=== PATIENT | female | born 1935 | race Caucasian/White ===

== ENCOUNTER 2018-05-20 06:41 | Inpatient (IN) | payer MEDICARE, BC ==
[~2018-05-20] VITALS: Ht 147.3 cm; Wt 80.7 kg
[2018-05-20] VITALS (34 sets, daily range): BP systolic 77–149; BP diastolic 16–83
--- NOTE | ~2018-05-20 | PROC ---
[facility] [address] [place] [address] PROCEDURE REPORT Name: ITZ TINAJERO Room: [address] IN M.R.#: [id number] Admission: 05/20/18 Attend Phys: Donato Smith, Discharge: 05/30/18 Date of : 33 Report #: [id number] THIS REPORT FOR: //name// For GI report, please see the Provation report in Perceptive 7 content. By: 0656Medical Records Staff ARIELLE /KATLYN
[2018-05-20 07:30] LABS: MCH 29.7 pg (26.0-34.0); MCHC 29.8 g/dL (28.0-37.0); MCV 99.4 fL (80.0-100.0); MPV 10.8 fl. (7.2-11.1); NUCLEATED RBCS 1 /100WBC; PLATELET COUNT* 126 thou/uL (150-400); RDW-CV 18.9 % (10.5-14.5); WBC 5.6 thou/uL (4.0-11.0)
[2018-05-20 07:48] LABS: HEMATOCRIT 13.9 % (37.0-47.0); HEMOGLOBIN 4.2 gm/dL (12.0-15.0)
[2018-05-20 07:54] LABS: INR 1.6; PROTIME 16.2 Seconds (9.20-11.50)
[2018-05-20 07:58] LABS: BE -19.1 mmol/L (-2 to +3); PCO2 23.3 mmHg (35.0-45.0); PO2 97.5 mmHg (75.0-100.0)
[2018-05-20 08:00] LABS: CALCIUM 7.8 mg/dL (8.5-10.1); CREATININE 2.6 mg/dL (0.6-1.3); TROPONIN-I LEVEL 0.06 ng/mL (<0.06)
[2018-05-20 08:02] LABS: pH 7.152 (7.340-7.450)
[2018-05-20 08:02] LABS: ALBUMIN 2.5 g/dL (3.4-5.0); TOTAL BILIRUBIN 0.3 mg/dL (<0.1-1.0); TOTAL PROTEIN 5.7 g/dL (6.4-8.2)
[2018-05-20 08:06] LABS: POTASSIUM 6.2 mmol/L (3.5-5.1)
[2018-05-20 09:17] LABS: ABSOLUTE LYMPHOCYTES 0.3 thou/uL (0.8-5.3); ABSOLUTE MONOCYTES 0.3 thou/uL (0.0-1.2); MYELOCYTES 3 %
[2018-05-20 09:19] LABS: TOXIC GRANULATION 3+
[2018-05-20 09:20] LABS: POLYCHROMASIA 2+
[2018-05-20 09:21] LABS: HYPOCHROMASIA 4+
[2018-05-20 09:22] LABS: BURR CELLS 1+; MACROCYTES 1+
[2018-05-20 09:24] LABS: PLATELET ESTIMATE DECREASED
[2018-05-20 09:37] LABS: URINE BILIRUBIN NEGATIVE (Negative); URINE BLOOD NEGATIVE (Negative); URINE CLARITY CLEAR; URINE COLOR YELLOW; URINE GLUCOSE-RANDOM NEGATIVE (Negative); URINE KETONES NEGATIVE (Negative); URINE LEUKOCYTES-REFLEX NEGATIVE (Negative); URINE NITRITE-REFLEX NEGATIVE (Negative); URINE PROTEIN NEGATIVE (Negative); URINE UROBILINOGEN 0.2 E.U./dl (0.2-1.0)
[2018-05-20 10:23] LABS: HEMATOCRIT 15.1 % (37.0-47.0); HEMOGLOBIN 4.5 gm/dL (12.0-15.0)
[2018-05-20] MEDS ORDERED: LASIX 40 MG TAB40 M2 PO (10:36)
[2018-05-20] MEDS ORDERED: LISINOPRIL10 MG PO (10:36)
[2018-05-20] MEDS ORDERED: GLUCOTROL5 MG PO (10:36)
[2018-05-20] MEDS ORDERED: IRON325 PO (10:36)
[2018-05-20] MEDS ORDERED: METFORMIN HCL500 MG PO (10:37)
[2018-05-20] MEDS ORDERED: OMEPRAZOLE40 MG PO (10:38)
[2018-05-20] MEDS ORDERED: LOPRESSOR25 PO (10:38)
[2018-05-20] MEDS ORDERED: DULERA 200 MCG/13 GM INH (10:38)
[2018-05-20] MEDS ORDERED: PIOGLITAZONE15 MG (10:39)
[2018-05-20] MEDS ORDERED: POTASSIUM20 PO (10:39)
[2018-05-20] MEDS ORDERED: XARELTO15 MG PO (10:39)
[2018-05-20] MEDS ORDERED: ULTRAM 50MG TAB50 MG PO (10:40)
[2018-05-20] MEDS ORDERED: HYTRIN 2MG CAPSU2 M1 PO (10:40)
[2018-05-20 10:57] LABS: APTT 36.4 Seconds (25.0-31.3); INR 1.6; PROTIME 15.9 Seconds (9.20-11.50)
[2018-05-20 11:56] LABS: CALCIUM 8.5 mg/dL (8.5-10.1); CREATININE 2.5 mg/dL (0.6-1.3); MAGNESIUM 1.6 mg/dL (1.8-2.4); PHOSPHORUS* 6.4 mg/dL (2.5-4.9)
[2018-05-20 12:00] LABS: POTASSIUM 5.1 mmol/L (3.5-5.1)
--- NOTE | 2018-05-20 12:00 | EKG ---
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 : 1935 Requested By: India Muller Order Number: [id number] MD: Jim Felix Measurements Intervals [place] Rate: 69 P: 62 WA: 119 QRS: -14 QRSD: 108 T: 51 QT: 464 QTc: 497 Interpretive Statements Sinus rhythm Borderline short WA interval nonspecific st changes Borderline prolonged QT interval Electronically Signed On 05-20-2018 12:00:06 CDT by Jim Felix [email or web address] <ELECTRONICALLY SIGNED> By: Jim Felix MD, [facility] 05/20/18 1200 6 6 Jim Felix MD, [facility] /EPI
[2018-05-20 15:02] LABS: ABSOLUTE LYMPHOCYTES 0.6 thou/uL (0.8-5.3); ABSOLUTE MONOCYTES 0.7 thou/uL (0.0-1.2); ABSOLUTE NEUTROPHILS 7.7 thou/uL (1.6-8.1); BASOPHILS 0.4 %; EOSINOPHILS 0.1 %; LYMPHOCYTES 6.8 %; MCH 29.8 pg (26.0-34.0); MCHC 32.3 g/dL (28.0-37.0); MONOCYTES 7.4 %; MPV 10.2 fl. (7.2-11.1); NUCLEATED RBCS 1 /100WBC; PLATELET COUNT* 147 thou/uL (150-400); POLYS 85.3 %; RBC 1.65 mil/uL (4.20-5.00); RDW-CV 16.3 % (10.5-14.5)
[2018-05-20 15:08] LABS: MCV 92.3 fL (80.0-100.0)
[2018-05-20 15:10] LABS: HEMATOCRIT 15.2 % (37.0-47.0); HEMOGLOBIN 4.9 gm/dL (12.0-15.0)
[2018-05-20 15:24] LABS: ALBUMIN 2.3 g/dL (3.4-5.0); CALCIUM 7.4 mg/dL (8.5-10.1); CREATININE 2.2 mg/dL (0.6-1.3); POTASSIUM 4.8 mmol/L (3.5-5.1); TOTAL BILIRUBIN 0.5 mg/dL (<0.1-1.0)
[2018-05-20 20:26] LABS: HEMATOCRIT 21.6 % (37.0-47.0)
[2018-05-20 20:29] LABS: HEMOGLOBIN 6.8 gm/dL (12.0-15.0)
[2018-05-20 22:08] LABS: BE -12.5 mmol/L (-2 to +3); PCO2 34.5 mmHg (35.0-45.0); PO2 98.8 mmHg (75.0-100.0)
[2018-05-20 22:11] LABS: pH 7.226 (7.340-7.450)
[2018-05-21] VITALS (21 sets, daily range): BP systolic 95–130; BP diastolic 29–45
[2018-05-21 04:09] LABS: HEMATOCRIT 20.4 % (37.0-47.0); MCH 29.2 pg (26.0-34.0); MCV 88.6 fL (80.0-100.0); MPV 9.4 fl. (7.2-11.1); RBC 2.31 mil/uL (4.20-5.00); RDW-CV 16.8 % (10.5-14.5); WBC 9.5 thou/uL (4.0-11.0)
[2018-05-21 04:49] LABS: ALBUMIN 2.3 g/dL (3.4-5.0); CALCIUM 7.4 mg/dL (8.5-10.1); CREATININE 2.2 mg/dL (0.6-1.3); MAGNESIUM 1.6 mg/dL (1.8-2.4); PHOSPHORUS* 6.1 mg/dL (2.5-4.9); POTASSIUM 5.1 mmol/L (3.5-5.1); TOTAL BILIRUBIN 0.4 mg/dL (<0.1-1.0); TOTAL PROTEIN 5.1 g/dL (6.4-8.2)
[2018-05-21 04:51] LABS: HEMOGLOBIN 6.7 gm/dL (12.0-15.0)
[2018-05-21 09:10] LABS: HEMOGLOBIN 4.1 g/dL (11.1-15.9)
[2018-05-21 13:11] LABS: HEMOGLOBIN 7.5 gm/dL (12.0-15.0)
[2018-05-21 13:13] LABS: HEMATOCRIT 22.5 % (37.0-47.0)
--- NOTE | 2018-05-21 13:46 | EKG ---
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 : 1935 Requested By: Francie Dukes Order Number: [id number] MD: Jim Felix Measurements Intervals [place] Rate: 70 P: 73 ND: 125 QRS: -15 QRSD: 150 T: 26 QT: 466 QTc: 503 Interpretive Statements Sinus rhythm Probable left ventricular hypertrophy ST depression, consider ischemia, lateral lds Prolonged QT interval No previous ECG available for comparison Electronically Signed On 05-21-2018 13:46:25 CDT by Jim Felix [email or web address] <ELECTRONICALLY SIGNED> By: Jim Felix MD, [facility] 05/21/18 1346 0653 0653 Jim Felix MD, [facility] /EPI
--- NOTE | 2018-05-21 15:53 | CON ---
[address] [address] CONSULTATION Name: ITZ TINAJERO Room: [address] IN M.R.#: [id number] Admission: 05/20/18 Attend Phys: Donato Smith, Discharge: Date of : 33 Report #: [id number] THIS REPORT FOR: //name// CC: Gato Smith DATE OF SERVICE: 05/20/2018 REASON FOR CONSULTATION: I was asked to evaluate concerning possible septic shock. HISTORY OF PRESENT ILLNESS: The patient is an 83-year-old who presented to the Emergency Room by EMS when she was found by her grandson lethargic and very weak. He called EMS who noted profound bradycardia with heart rate in the 20s. She was given atropine. She was transported to the Emergency Room. Again, she dropped her heart rate and was given another atropine. Hemodynamically, she has been hypotensive and hypothermic. She denies any fever, chills or sweats. She has been complaining of tachycardia with known atrial fibrillation. Her metoprolol was doubled this past week. She has had no fever, chills or sweats. Denies any cough or sputum production. No chest pain. No aspiration episodes. She has had an aortic valve replacement. She remains on Xarelto. She has hemorrhoid issues. She takes iron for chronic anemia. When she presented to the Emergency Room, it was noted her hemoglobin was 4. She is now receiving blood transfusion. She received IV fluids and vasopressors. Creatinine was over 2 with decreased urine output, which is now improving. Overall, she is hungry now alert and without specific complaint. REVIEW OF SYSTEMS: She denies any abdominal pain, nausea or vomiting. She has loose stools on a regular basis. No dysuria, frequency or back pain. Ten-point review was negative other than what is described above. ALLERGIES: GABAPENTIN, ASPIRIN, HEPARIN, PENICILLIN, SULFA, TETRACYCLINE, ZINC. MEDICATIONS: As noted on her MAR, which were reviewed. She was given vancomycin and ceftriaxone in the Emergency Room. PAST MEDICAL HISTORY: Diabetes, atrial fibrillation, aortic valve replacement in 2011, anemia, hypertension. FAMILY HISTORY: Noncontributory. SOCIAL HISTORY: Nonsmoker. No significant alcohol intake. PHYSICAL EXAMINATION: VITAL SIGNS: Temperature 97.5, pulse 87, respiratory rate 16, blood pressure 119/33[place] [address] CONSULTATION Name: ITZ TINAJERO Virgie Room: [address]#: [id number] Admission: 05/20/18 Attend Phys: Donato Smith, Discharge: Date of : 33 Report #: [id number] GENERAL: She was alert, cooperative, pleasant, in no acute distress. She was pale, obese, on 2 liters of oxygen per nasal cannula. She was alert, oriented and conversant. HEENT: She had a right IJ catheter in place. There was some ecchymosis across her lower anterior neck. Eyes were without scleral icterus. Mouth without mucositis. NECK: Supple. LUNGS: Few crackles in the left base posteriorly. HEART: Regular without appreciable murmur, gallop or rub. ABDOMEN: Soft. Liver was palpable in the right upper quadrant. No other masses palpable. Nontender. Positive bowel sounds. GENITOURINARY: Perianal examination with hemorrhoids visible. External genitalia without lesion or rash with indwelling Page catheter. EXTREMITIES: Without cyanosis, clubbing or edema. Cranial nerves intact. Strength in upper and lower extremities was normal. Sensation in upper and lower extremities normal. NEUROLOGIC: Mood, normal. LABORATORY STUDIES: Sodium 141, potassium 4.8, bicarbonate of 18, creatinine 2.2. Blood glucose 252, AST 275, bilirubin 0.5, alkaline phosphatase 60, ALT 143. Troponin 0.06. Lactate initially 11.7, now 2.7. INR 1.6. Hemoglobin 4.9, WBC 9, platelet count 147,000. Differential unremarkable. Urinalysis unremarkable. ABG on 2 liters showed a pO2 97, pCO2 of 23, pH 7.15, bicarbonate of 8 that was early this morning. Blood cultures are pending. Chest x-ray, left mid and lower lung infiltrate, cardiomegaly. IMPRESSION: An 83-year-old presents with bradycardia and hypotension, most consistent with anemia with her hemoglobin down to 4 along with increased dose of metoprolol. So far I not finding any evidence of end organ infection other than basilar infiltrate on the right and will be treated for community-acquired pneumonia. Despite this, she has had no fevers, any cough or sputum production. Denies any pleuritic chest pain. She is anticoagulated for her prosthetic aortic valve. She has underlying diabetes. She has acute renal failure that will be followed. RECOMMENDATIONS: Continue antibiotic coverage for community-acquired pneumonia. Replace blood products due to her profound anemia. I am suspecting this is driving most of this presentation. The patient will likely need General Surgery evaluation regarding her hemorrhoids. The patient will require continued anticoagulation for aortic valve replacement. The patient will require close monitoring of her blood glucose levels. We will [place] [address] CONSULTATION Name: ITZ TINAJERO Room: [address] IN [facility]#: [id number] Admission: 05/20/18 Attend Phys: Donato Smith, Discharge: Date of : 33 Report #: [id number] other positive cultures. Obtain serial chest x-rays and hemoglobins and creatinine. <ELECTRONICALLY SIGNED> By: Andrade Cook MD 05/21/18 1553 1708 [id number] Cook MD /nt
[2018-05-21 19:10] LABS: HEMOGLOBIN 7.1 gm/dL (12.0-15.0); MCH 29.3 pg (26.0-34.0); MCHC 33.8 g/dL (28.0-37.0); MCV 86.7 fL (80.0-100.0); MPV 8.8 fl. (7.2-11.1); RBC 2.43 mil/uL (4.20-5.00); RDW-CV 18.1 % (10.5-14.5); WBC 8.6 thou/uL (4.0-11.0)
[2018-05-22] VITALS (21 sets, daily range): BP systolic 99–145; BP diastolic 35–55
[2018-05-22 07:15] LABS: ALBUMIN 2.1 g/dL (3.4-5.0); CALCIUM 7.1 mg/dL (8.5-10.1); CREATININE 2.1 mg/dL (0.6-1.3); MAGNESIUM 1.9 mg/dL (1.8-2.4); PHOSPHORUS* 4.7 mg/dL (2.5-4.9); POTASSIUM 4.8 mmol/L (3.5-5.1); TOTAL BILIRUBIN 0.2 mg/dL (<0.1-1.0); TOTAL PROTEIN 4.7 g/dL (6.4-8.2)
[2018-05-22 08:18] LABS: BE -5.7 mmol/L (-2 to +3); PCO2 41.7 mmHg (35.0-45.0); PO2 122.1 mmHg (75.0-100.0); pH 7.303 (7.340-7.450)
[2018-05-22 08:23] LABS: HEMATOCRIT 20.5 % (37.0-47.0); MCH 28.7 pg (26.0-34.0); MCHC 32.6 g/dL (28.0-37.0); RBC 2.33 mil/uL (4.20-5.00); RDW-CV 18.7 % (10.5-14.5); WBC 7.9 thou/uL (4.0-11.0)
[2018-05-22 08:27] LABS: HEMOGLOBIN 6.7 gm/dL (12.0-15.0)
[2018-05-22 10:06] LABS: CA 125 18.2 U/mL (0.0-38.1)
--- NOTE | 2018-05-22 13:42 | 2DMMODE ---
[place] [address] 2 D/M-MODE ECHOCARDIOGRAM Name: ITZ TINAJERO Room: [address] IN .R.#: [id number] Admission: 05/20/18 Attend Phys: Donato Owen Discharge: Date of : 31 Date of Service: 05/22/18 1342 Report #: [id number] THIS REPORT FOR: //name// APPROVED REPORT Study performed: 05/22/2018 09:41:28 EXAM: Comprehensive 2D, Doppler, and color-flow Echocardiogram Patient Location: Bedside BSA: 1.72 HR: 80 bpm BP: 115/46 mmHg Other Information Study Quality: Fair Indications Sepsis 2D Dimensions IVSd: 13.60 (7-11mm) LVOT Diam: 20.72 (18-24mm) LVDd: 45.38 mm PWd: 10.44 (7-11mm) Ascending Ao: 31.08 (22-36mm) LVDs: 33.90 (25-40mm) Aortic Root: 27.02 mm Volumes Left Atrial Volume (Systole) LA ESV Index: 34.10 mL/m2 Aortic Valve AoV Peak Fermin.: 2.07 m/s AO Peak Gr.: 17.07 mmHg LVOT Max P.47 mmHg AO Mean Gr.: 10.25 mmHg LVOT Mean P.86 mmHg LVOT Max V: 0.93 m/s AO V2 VTI: 46.35 cm LVOT Mean V: 0.63 m/s ZEINAB (VTI): 1.45 cm2 LVOT V1 VTI: 19.99 cm AI [place]: 2.56 m/s2 AI PHT: 476.55 ms Mitral Valve E/A Ratio: 1.23 MV Decel. Time: 190.62 ms MV E Max Fermin.: 1.25 m/[place] [address] 2 D/M-MODE ECHOCARDIOGRAM Name: ITZ TINAJERO Room: [address] IN .R.#: [id number] Admission: 05/20/18 Attend Phys: Donato Owen Discharge: Date of : 31 Date of Service: 05/22/18 1342 Report #: [id number] MV PHT: 55.28 ms MVA (PHT): 3.98 cm2 TDI E/Lateral E': 11.36 E/Medial E': 12.50 Medial E' Fermin.: 0.10 m/s Lateral E' Fermni.: 0.11 m/s Pulmonary Valve PV Peak Fermin.: 1.36 m/s PV Peak Gr.: 7.39 mmHg Tricuspid Valve RAP Estimate: 20.00 mmHg TR Peak Gr.: 37.95 mmHg RVSP: 47.95 mmHg PA Pressure: 47.95 mmHg Left Ventricle The left ventricle is normal size. There is normal LV segmental wall motion. There is normal left ventricular wall thickness. Left ventricular systolic function is normal. The left ventricular ejection fraction is within the normal range. LVEF is 55-60%. The left ventricular diastolic function is normal. Right Ventricle The right ventricle is normal size. The right ventricular systolic function is normal. Atria Left atrium is mildly dilated. Right atrium is mildly dilated. Aortic Valve Bioprosthetic aortic valve is present. Mild aortic regurgitation. There is no aortic valvular stenosis. Mitral Valve There is mitral annular calcification. Trace mitral regurgitation. No evidence of mitral valve stenosis. Tricuspid Valve The tricuspid valve is normal in structure. Mild to moderate tricuspid regurgitation. estimated pa pressure 30 mm Hg Pulmonic Valve The pulmonary valve is normal in structure. Mild [place] [address] 2 D/M-MODE ECHOCARDIOGRAM Name: ITZ TINAJERO Room: [address]#: [id number] Admission: 05/20/18 Attend Phys: Donato Owen Discharge: Date of : 33 Date of Service: 05/22/18 1342 Report #: [id number] Great Vessels The aortic root is normal in size. IVC is dilated. Pericardium There is no pericardial effusion. <Conclusion> LVEF is 55-60%. Left atrium is mildly dilated. Bioprosthetic aortic valve is present. Mild aortic regurgitation. Mild to moderate tricuspid regurgitation. estimated pa pressure 30 mm Hg <ELECTRONICALLY SIGNED> By: Jim Felix MD, [facility] 05/22/18 1342 134 41 Jim Felix MD, FACC /INF
[2018-05-22 20:01] LABS: HEMATOCRIT 23.4 % (37.0-47.0); HEMOGLOBIN 7.8 gm/dL (12.0-15.0)
[2018-05-23] VITALS: BP 117/55
[2018-05-23 04:14] VITALS: BP 139/55
[2018-05-23 05:45] LABS: HEMATOCRIT 22.7 % (37.0-47.0); HEMOGLOBIN 7.6 gm/dL (12.0-15.0); MCH 29.3 pg (26.0-34.0); MCHC 33.6 g/dL (28.0-37.0); MCV 87.2 fL (80.0-100.0); MPV 8.7 fl. (7.2-11.1); RBC 2.6 mil/uL (4.20-5.00); RDW-CV 16.6 % (10.5-14.5); WBC 6.5 thou/uL (4.0-11.0)
[2018-05-23 05:52] LABS: CALCIUM 7.6 mg/dL (8.5-10.1); CREATININE 1.8 mg/dL (0.6-1.3); MAGNESIUM 1.8 mg/dL (1.8-2.4); POTASSIUM 4.6 mmol/L (3.5-5.1)
[2018-05-23 08:00] VITALS: BP 141/75
[2018-05-23 11:55] VITALS: BP 151/64
--- NOTE | 2018-05-23 12:06 | CON ---
[address] [address] CONSULTATION Name: ITZ TINAJERO Room: [address] IN M.R.#: [id number] Admission: 05/20/18 Attend Phys: Donato Smith, Discharge: Date of : 33 Report #: [id number] THIS REPORT FOR: //name// CC: Gato Smith M.D. DATE OF SERVICE: 05/21/2018 ATTENDING PHYSICIAN: Donato Smith MD. PRIMARY CARE PHYSICIAN: Gato Yanez DO. The patient is located in ICU bed 3. INDICATION FOR CONSULTATION: Mild hypoxemia, pulmonary infiltrate, lactic acidosis. HISTORY OF PRESENT ILLNESS: The patient is an 83-year-old female, nonsmoker, who was admitted through the Emergency Room yesterday. The patient had a 3-5 day history of feeling poorly at home. She had lethargy, was weak and was hypotensive. She was bradycardic when she was seen by EMS and her metoprolol been doubled this week, I believe for elevation of her blood pressure. She was hypotensive and hypothermic. When she reached the Emergency Room, she was anemic with hemoglobin of 4 and a lactic acid of 11. She denied any fever, chills or sweats and on talking to her today, she denies any cough, aspiration or chest pain. She has had an aortic valve replacement in the past and remains on Xarelto. She denies any bleeding in her stools. She does have occasional hemorrhoid though. She had oliguric renal failure also and she was placed on Levophed for pressors that seems to be improving at this time. She is more alert and awake today. PAST MEDICAL HISTORY: History of diabetes, atrial fibrillation, aortic valve replacement in 2011 with chronic anticoagulation, anemia and hypertension. She has a history of mild asthma for which she was not oxygen or steroid dependent. She is on Dulera at home for this. OUTPATIENT MEDICATIONS: Included Dulera 200/5 mcg 1 puff b.i.d., Ventolin inhaler 2 puffs p.r.n. Has a nebulizer machine at home. She is currently on IV vancomycin and ceftriaxone, Protonix, IV fluids, sliding scale insulin and alprazolam 0.25 mg q. 6 hours p.r.n. Has had a couple doses of IV bicarbonate, had one dose of Solu-Medrol 125 mg, actually received one dose of Lasix 40 mg [place] [address] CONSULTATION Name: TINAJEROITZ Room: [address] IN [facility].#: [id number] Admission: 05/20/18 Attend Phys: Donato Smith, Discharge: Date of : 33 Report #: [id number] ALLERGIES: SHE HAS MULTIPLE ALLERGIES OR INTOLERANCE INCLUDING PENICILLIN, SULFA, WHICH GIVE HER NAUSEA AND HEADACHE. PENICILLIN GIVES HER NAUSEA, ALSO ZINC AND ASPIRIN. GABAPENTIN, WHICH GIVES HER HALLUCINATIONS AND QUESTIONABLY HEPARIN, NOT CERTAIN WHAT THAT IS ABOUT. TETRACYCLINE WITH NAUSEA. PAST SURGICAL HISTORY: Includes aortic valve replacement with mechanical aortic valve in 2012 and diabetes. FAMILY HISTORY: Noncontributory. SOCIAL HISTORY: She is a nonsmoker. She has a daughter, who lives nearby, who helps with her caregiving needs. The patient resides in [place], [place] and her daughter also is in [place], [place]. She may be actually in the same household. REVIEW OF SYSTEMS: A 14-point review of systems reviewed and negative except for pertinent positives noted in the HPI. PHYSICAL EXAMINATION: GENERAL: This is a weak, frail, 83-year-old female, who appears to be improving a little bit. VITAL SIGNS: Blood pressure is still soft on 16 mcg of Levophed at 110/45 with a heart rate of 72, respirations are 16 on 2 liters, temperature is 36.8, saturation on 2 liters 99%. She is barely 5 feet tall, weight 81 kilograms or 176 pounds, BMI is 37. HEENT: Unremarkable. Mucous membranes are dry. No increase in jugular venous pressure. NECK: Supple, without nodes. No masses or adenopathy. CHEST: Left chest shows a few rhonchi at the left lower lobe at the left base, otherwise clear. CARDIOVASCULAR: Regular rate and rhythm without murmur, gallop or rub. She does have a soft aortic click sound. ABDOMEN: Soft and mildly distended, but without any rebound tenderness. EXTREMITIES: Show trace edema. No cyanosis, clubbing or edema. LABORATORY AND DIAGNOSTIC STUDIES: Chest x-ray shows large hiatal hernia in the left lower lobe and also, on the CT of the abdomen, very small bilateral pleural effusions. No significant overwhelming bronchopneumonia or infiltrates are noted. Minimal atelectatic changes noted. She also has scoliosis. No definite COPD at least seen on the CAT scan. Laboratory from today shows initial hemoglobin was 4. After 2 units, she is up to 6.7 with a white count 9500 and platelet count of 131,000. Sodium is 141, potassium is 5.1 this morning. Carbon dioxide is up to 18, it was 12. BUN 71, creatinine is down to 2.2, glucose 273, phosphorus is up 6.1, magnesium is 1.6. AST is elevated at 307, ALT is 171, still slightly elevated. Albumin is low at 2.3. Lactic acid initially was 11. It is back down to 2 at this time. ABGs from yesterday [address] [address] CONSULTATION Name: ITZ TINAJERO Room: [address] IN .R.#: [id number] Admission: 05/20/18 Attend Phys: Donato Smith, Discharge: Date of : 33 Report #: [id number] evening, which were improving on 2 liters showed a pO2 of 98, pH 7.22, pCO2 is 35, bicarbonate was 14. Previous bicarbonate was 8 upon admission and her O2 sat was 95%. Initial ABG, O2 content was 7.1, is now up to 10.3. CT of the abdomen does not show anything surgical, some cholelithiasis is noted, some minimal colitis changes were noted. Blood cultures are pending. IMPRESSION: 1. Sepsis with hypotension, etiology unclear, could be related to the higher dose of metoprolol with bradycardia and hypotension could be related to occult infection or sepsis either from GI tract, urinary tract. Lungs been other possibility. She is not hypoxic and the lower cuts on the CT abdomen is not impressive at all. 2. Anemia, etiology unclear. 3. Bradycardia, could be related to illness or to her sepsis. 4. Aortic valve replacement. It appears it is a bioprosthetic aortic valve. I do not see a metallic valve on a CT abdomen or on chest x-rays. She is on what appears to be chronic anticoagulation for this and Xarelto. PLAN: We will add a burst course of steroids for her sepsis and her hypotension. See if her hypotension does not improve, keep her on antibiotics with vancomycin and Merrem and really the chest x-ray findings are not impressive. I do not think she has an overwhelming bronchopneumonia at this time. We will continue to look for other causes of sepsis including GI tract, urinary tract infections and skin, etc. We will see how she does on the pressors and the steroids. Follow up chest x-ray in a day or two and make sure hiatal hernia and reflux is not causing her intermittent aspiration or intermittent aspiration pneumonia. This has been a 36-minute critical care time in consult. <ELECTRONICALLY SIGNED> By: Ike Tinsley MD 05/23/18 1206 1244 [id number] Velazco MD /nt
[2018-05-23 15:58] VITALS: BP 145/56
--- NOTE | 2018-05-23 17:25 | CON ---
[address] [address] CONSULTATION Name: ITZ TINAJERO Room: [address] IN M.R.#: [id number] Admission: 05/20/18 Attend Phys: Donato Smith, Discharge: Date of : 33 Report #: [id number] THIS REPORT FOR: //name// CC: INDIO Smith DATE OF SERVICE: 05/20/2018 HISTORY OF PRESENT ILLNESS: The patient is an 83-year-old single white female who I was asked to see in the hospital today because of shortness of breath. The history is obtained from the grandson who is present. The patient is currently confused. She has never been here to [place] before. She apparently had aortic valve replacement several years ago at [facility] using a tissue valve. She was actually just admitted to [facility] less than a month ago. She was noted to be anemic, felt to have B12 deficiency. She had a bleeding hemorrhoid. She was noted to have chronic kidney disease. She was actually discharged on Xarelto to custodial. She is not very active and uses a walker. The patient apparently was confused, short of breath and lightheaded. The grandson called an ambulance and she was brought to the Emergency Room today. She is noted to be hypotensive with a slow heart rate. Because of her previous aortic valve replacement, cardiology consultation was requested. Apparently, there has been no significant chest pain, palpitations, syncope. She denied any recent fever. PAST MEDICAL HISTORY: Otherwise, she has had history of hypertension, diabetes. MEDICATIONS: Consists of iron, Lasix, glipizide, lisinopril, metformin, metoprolol, Actos, Xarelto, terazosin. FAMILY HISTORY: Negative for heart disease. SOCIAL HISTORY: She is . No smoking history. REVIEW OF SYSTEMS: She had no history of stroke, asthma, peptic ulcer disease, cancer, psychiatric illness, chronic skin condition. PHYSICAL EXAMINATION: GENERAL: Revealed an elderly, frail-appearing female. VITAL SIGNS: She is only 5 feet 11 inches. She had blood pressure ____, pulse is 70. HEENT: She was anicteric. Conjunctivae pale. Mucous membranes appeared dry. CHEST: Clear to auscultation. CARDIAC: Revealed a regular rhythm, grade 2 systolic ejection murmur. ABDOMEN: Soft. EXTREMITIES: [place] [address] CONSULTATION Name: NICOLETTE TINAJEROLISSETT Garvin Room: [address]#: [id number] Admission: 05/20/18 Attend Phys: Donato Smith, Discharge: Date of : 33 Report #: [id number] SKIN: Cool and dry. LABORATORY DATA: ECG on admission shows what appears to be a sinus rhythm, left ventricular hypertrophy. Her workup in the Emergency Room today, she had a portable chest x-ray that showed cardiomegaly, previous aortic valve replacement, clear lung lala, minimal atelectasis. There appears to be an infiltrate in the left lower lobe. LABORATORY DATA: Sodium 137, potassium 6.2, BUN 78, creatinine 2.6, glucose 242, albumin is 2.5. Lactic acid 8.6. Troponin 0.06. BNP 8454. Her white blood cell count 5.6, hemoglobin 4.5, platelet count 126,000. IMPRESSION AND RECOMMENDATIONS: 1. History of atrial fibrillation. The patient is on Xarelto. She currently is in sinus rhythm. I would discontinue Xarelto. I would hold her beta maury because of bradycardia. 2. Previous aortic valve replacement. Recent echo showed the valve is working normally. 3. Anemia. History of hemorrhoids. The patient received transfusion. 4. Confusion. 5. Chronic kidney disease. 6. Hyperkalemia. The patient has been on potassium supplements. 7. Diabetes. 8. History of hypertension. Currently, blood pressure low. I would hold her beta maury and ELEAZAR inhibitor at this time. <ELECTRONICALLY SIGNED> By: Jim Felix MD, FACC 05/23/18 1725 1121 [id number] Felix MD, FAC /nt
[2018-05-23 21:10] VITALS: BP 119/44
[2018-05-24] VITALS: BP 115/55
[2018-05-24 03:39] VITALS: BP 133/58
[2018-05-24 05:23] LABS: HEMATOCRIT 22.9 % (37.0-47.0); HEMOGLOBIN 7.6 gm/dL (12.0-15.0); MCH 29.1 pg (26.0-34.0); MCHC 32.9 g/dL (28.0-37.0); MCV 88.4 fL (80.0-100.0); MPV 9.1 fl. (7.2-11.1); RBC 2.6 mil/uL (4.20-5.00); RDW-CV 16.7 % (10.5-14.5); WBC 7.7 thou/uL (4.0-11.0)
[2018-05-24 05:41] LABS: CALCIUM 7.9 mg/dL (8.5-10.1); CREATININE 1.6 mg/dL (0.6-1.3); MAGNESIUM 1.8 mg/dL (1.8-2.4)
[2018-05-24 07:40] VITALS: BP 139/59
[2018-05-24 14:09] VITALS: BP 134/53
[2018-05-24 16:03] VITALS: BP 137/58
[2018-05-24 19:10] LABS: IgA 175 mg/dL (64-422); IgG 558 mg/dL (700-1600); IgM 23 mg/dL (26-217)
[2018-05-24 20:00] VITALS: BP 139/53
[2018-05-25 06:46] LABS: HEMATOCRIT 26.8 % (37.0-47.0); HEMOGLOBIN 8.8 gm/dL (12.0-15.0); MCH 29.4 pg (26.0-34.0); MCV 89.1 fL (80.0-100.0); MPV 8.9 fl. (7.2-11.1); RBC 3.01 mil/uL (4.20-5.00); RDW-CV 16.5 % (10.5-14.5); WBC 6.4 thou/uL (4.0-11.0)
[2018-05-25 07:01] LABS: CALCIUM 7.9 mg/dL (8.5-10.1); CREATININE 1.4 mg/dL (0.6-1.3); MAGNESIUM 1.6 mg/dL (1.8-2.4); POTASSIUM 4.1 mmol/L (3.5-5.1)
[2018-05-25 08:30] VITALS: BP 159/54
--- NOTE | 2018-05-25 10:11 | CON ---
[address] [address] CONSULTATION Name: ITZ TINAJERO Room: [address] IN M.R.#: [id number] Admission: 05/20/18 Attend Phys: Donato Smith, Discharge: Date of : 31 Report #: [id number] THIS REPORT FOR: //name// CC: Gato Smith TYPE OF REPORT: Nephrology consultation. CONSULTING PHYSICIAN: Donato Smith M.D. REASON FOR CONSULTATION: Acute kidney injury. HISTORY OF PRESENT ILLNESS: An 83-year-old female who was brought in with hypotension and bradycardia, concern for sepsis and pneumonia. She had heart rates in the 20s. She received atropine. Cardiology has been consulted as well as Infectious Disease to help manage antibiotics. She was given fluid boluses and started on Levophed, transferred to the ICU. She was being markedly acidotic and was given bicarbonate. She does not have an outpatient kidney doctor but tells me that she has been referred to see one as an outpatient. Presently appears to be comfortable. She has family present at the bedside who helped provide some of the history, although the patient is awake and alert, able to provide some meaningful history to me now. She denies any chest pain and denies any vomiting. She was severely anemic with a hemoglobin of 4.5 and is being transfused and the anemia is also being worked up by the Internal Medicine Service. REVIEW OF SYSTEMS: Constitutional, psych, heme, eyes, ENT, respiratory, cardiac, GI, , endocrine, all negative except as documented above. PAST MEDICAL HISTORY: Diabetes and history of aortic valve replacement in 2012. SOCIAL HISTORY: No tobacco. FAMILY HISTORY: Not pertinent in this 83-year-old female. CURRENT MEDICATIONS: Reviewed. PHYSICAL EXAMINATION: VITAL SIGNS: Blood pressure 120/80, pulse 68, respirations 12 and temperature 35.1. GENERAL: No acute distress. EYES: Open. EARS: Externally normal. CARDIOVASCULAR: Regular rate. LUNGS: Diminished breath sounds. ABDOMEN: Soft. MUSCULOSKELETAL: [place] [address] CONSULTATION Name: ITZ TINAJERO Room: [address]#: [id number] Admission: 05/20/18 Attend Phys: Donato Smith, Discharge: Date of : 33 Report #: [id number] PSYCHIATRIC: Awake and alert. LABORATORY DATA: Sodium 139, potassium 5.1, chloride 106, bicarbonate 12, BUN 79, creatinine 2.5, glucose 267, calcium 8.5, phosphorus 6.4 and magnesium 1.6. White cell count 5.6, hemoglobin was 4.2 and platelets were 126. ASSESSMENT: 1. Acute kidney injury with admission creatinine of 2.6 in the setting of septic shock with blood pressures in the 70s and bradycardia down into the 20s, requiring atropine as well as severe anemia with a hemoglobin of 4.5. UA was unrevealing. She was on Lasix and lisinopril. Baseline creatinine is unknown. 2. Hypotension with blood pressure down to the 70s/septic shock. Levophed initiated on admission. 3. Metabolic/lactic acidosis with an admission pH is 7.15, pCO2 of 23 and bicarbonate of 8. 4. Severe anemia with hemoglobin of 4.5. 5. Hypoalbuminemia with an albumin of 2.5. 6. History of aortic valve replacement, porcine in 2011, septic shock/pneumonia. 7. Diabetes. PLAN: 1. She has had hypomagnesemia. Magnesium is being replaced. 2. Discontinue p.r.n. Lasix. 3. Check renal ultrasound. 4. Caution vancomycin in the setting of renal insufficiency. 5. We will adjust IV fluids and increase bicarbonate. 6. We will follow closely. She is critically ill. Transfusion is being managed by Primary Service. CRITICAL CARE TIME: Thirty-five minutes of critical care time was spent. Thank you for requesting my opinion in the care and management of this patient. <ELECTRONICALLY SIGNED> By: Pauline Rush MD 05/25/18 1011 [id number] Rush MD /nt
[2018-05-25 11:11] LABS: HEMOGLOBIN 8.1 g/dL (11.1-15.9)
[2018-05-25 14:10] LABS: KAPPA FREE LIGHT CHAINS 24.2 mg/L (3.3-19.4); LAMBDA FREE LIGHT CHAINS 25.7 mg/L (5.7-26.3)
[2018-05-25 16:00] VITALS: BP 162/67
--- NOTE | 2018-05-25 16:27 | CON ---
[address] [address] CONSULTATION Name: ITZ TINAJERO Room: [address] IN M.R.#: [id number] Admission: 05/20/18 Attend Phys: Donato Smith, Discharge: Date of : 33 Report #: [id number] THIS REPORT FOR: //name// CC: Gato Smith REASON FOR CONSULTATION: Anemia. SUBJECTIVE: An 83-year-old female who is being evaluated for severe anemia. Upon admission, on 05/20/2018, her hemoglobin was 4.2. During her hospital stay, she was transfused 4 units of PRBC. The patient reported that she was in the process to be seen at the clinic as an outpatient; however, she ended up being admitted because of hypotension and septic shock. The patient received broad-spectrum antibiotics and supportive transfusion. The patient reported that she has been on transfusion frequently for many years, she thinks she had hemorrhoids. The patient had an upper and lower scope prior to that. The patient did not have any recent workup for her anemia. She reported that she had a bone marrow biopsy at the age of 10. The patient denies any nausea, vomiting or abdominal pain. She received IV fluids. Also, she had a history of aortic valve replacement and was on Xarelto. REVIEW OF SYSTEMS: All systems were reviewed. It was negative except the above. PAST MEDICAL HISTORY: Diabetes mellitus; AFib; aortic valve replacement, on anticoagulation; chronic anemia, unknown etiology; hypertension; mild asthma; chronic kidney disease. MEDICATIONS: Per admission list. ALLERGIES: PENICILLIN, SULFA, ZINC, ASPIRIN. FAMILY HISTORY: Noncontributory. SOCIAL HISTORY: No smoking, no alcohol abuse, no drug abuse. PHYSICAL EXAMINATION: VITAL SIGNS: Temperature is 36.6, pulse is 82, respirations 17, blood pressure is 133/58, SpO2 was 94% on 2 liters. GENERAL: The patient was sitting in a chair, otherwise, not in acute distress. LUNGS: Clear. Decreased breathing sounds bilaterally. HEART: Regular rate and rhythm. S1, S2 within normal limits. ABDOMEN: Soft, nontender, nondistended, bowel sounds positive. EXTREMITIES: +2 edema bilaterally. LABORATORY DATA: WBC 7.7, hemoglobin is 7.6 today. MCV is 88.9, platelets are 84. PT 15.9, PTT 36.4, fibrinogen 343. Creatinine is 1.6. Upon admission, [place] [address] CONSULTATION Name: ITZ TINAJERO Room: [address]#: [id number] Admission: 05/20/18 Attend Phys: Donato Smith, Discharge: Date of : 33 Report #: [id number] was 2.6. IMAGING: A chest x-ray showed cardiomegaly, mild basilar densities consistent with atelectasis. CT abdomen done without contrast, there is a prominent soft tissue edema with cardiomegaly, no abnormalities in the kidneys, with cholelithiasis. ASSESSMENT AND PLAN: An 83-year-old female who has been dependent on transfusion for unclear etiology. The patient reported that she has been having hemorrhoids and she noticed bright blood per rectum intermittently; however, I would like to review her trend of hemoglobin from [facility] records; however, I believe the patient will need a full workup to investigate her refractory anemia in order to rule out myelodysplastic syndrome. RECOMMENDATIONS: I would like to obtain peripheral blood smear, iron studies with a B12 serum level, serum electrophoresis with immunofixation and serum erythropoietin level. I discussed with the patient the possibility of obtaining a bone marrow biopsy, which the patient is more in favor of having this done as an outpatient. At this point, we will monitor the patient's follow up on her workup, but we will need to arrange a bone marrow biopsy as an outpatient. <ELECTRONICALLY SIGNED> By: Len Dove MD 05/25/18 1627 [id number] Dove MD /nt
[2018-05-26] VITALS: BP 154/52
[2018-05-26 08:59] LABS: HEMATOCRIT 22.7 % (37.0-47.0); HEMOGLOBIN 7.4 gm/dL (12.0-15.0); MCH 29.2 pg (26.0-34.0); MCHC 32.7 g/dL (28.0-37.0); MCV 89.2 fL (80.0-100.0); MPV 9.3 fl. (7.2-11.1); RBC 2.54 mil/uL (4.20-5.00); RDW-CV 16.7 % (10.5-14.5); WBC 6.1 thou/uL (4.0-11.0)
[2018-05-26 10:49] LABS: HEMATOCRIT 23.3 % (37.0-47.0); HEMOGLOBIN 7.6 gm/dL (12.0-15.0)
[2018-05-26 14:18] VITALS: BP 178/61
[2018-05-26 16:09] LABS: GLOBULIN TOTAL 2.3 g/dL (2.2-3.9); M-SPIKE Not Observed g/dL (Not Observed)
[2018-05-26 16:35] VITALS: BP 120/63
[2018-05-26 20:00] VITALS: BP 119/68
[2018-05-27 03:55] LABS: HEMATOCRIT 21.6 % (37.0-47.0); HEMOGLOBIN 7.1 gm/dL (12.0-15.0); MCH 29.4 pg (26.0-34.0); MCHC 32.8 g/dL (28.0-37.0); MCV 89.4 fL (80.0-100.0); RBC 2.41 mil/uL (4.20-5.00); RDW-CV 17.2 % (10.5-14.5); WBC 6.3 thou/uL (4.0-11.0)
[2018-05-27 08:00] VITALS: BP 146/56
[2018-05-27 17:19] VITALS: BP 159/66
[2018-05-28 05:06] LABS: HEMATOCRIT 23.2 % (37.0-47.0); HEMOGLOBIN 7.5 gm/dL (12.0-15.0); MCH 28.9 pg (26.0-34.0); MCHC 32.3 g/dL (28.0-37.0); MCV 89.5 fL (80.0-100.0); MPV 9.6 fl. (7.2-11.1); RBC 2.59 mil/uL (4.20-5.00); RDW-CV 17.5 % (10.5-14.5); WBC 7.4 thou/uL (4.0-11.0)
[2018-05-28 05:34] LABS: CALCIUM 7.8 mg/dL (8.5-10.1); CREATININE 1.1 mg/dL (0.6-1.3); MAGNESIUM 1.3 mg/dL (1.8-2.4); POTASSIUM 4.1 mmol/L (3.5-5.1)
[2018-05-28 08:00] VITALS: BP 167/69
[2018-05-28 16:00] VITALS: BP 162/65
[2018-05-28 17:45] VITALS: BP 169/74
[2018-05-29 05:14] LABS: HEMATOCRIT 24.2 % (37.0-47.0); HEMOGLOBIN 7.8 gm/dL (12.0-15.0); MCH 28.8 pg (26.0-34.0); MCHC 32.2 g/dL (28.0-37.0); MCV 89.4 fL (80.0-100.0); MPV 9.4 fl. (7.2-11.1); RBC 2.71 mil/uL (4.20-5.00); RDW-CV 17.9 % (10.5-14.5); WBC 7.4 thou/uL (4.0-11.0)
[2018-05-29 05:28] LABS: CALCIUM 7.9 mg/dL (8.5-10.1); CREATININE 1.1 mg/dL (0.6-1.3); POTASSIUM 3.6 mmol/L (3.5-5.1)
[2018-05-29 09:00] VITALS: BP 149/56
[2018-05-29 09:36] VITALS: BP 169/74
[2018-05-29 13:15] VITALS: BP 147/51
[2018-05-29 20:03] VITALS: BP 140/58
[2018-05-30 07:45] VITALS: BP 174/69
[2018-05-30 11:12] LABS: HEMATOCRIT 23.5 % (37.0-47.0); HEMOGLOBIN 7.5 gm/dL (12.0-15.0); MCH 29.3 pg (26.0-34.0); MCV 91.4 fL (80.0-100.0); MPV 9.4 fl. (7.2-11.1); NUCLEATED RBCS 0 /100WBC; PLATELET COUNT* 125 thou/uL (150-400); RBC 2.57 mil/uL (4.20-5.00); RDW-CV 17.6 % (10.5-14.5); WBC 8.7 thou/uL (4.0-11.0)
[2018-05-30 12:05] VITALS: BP 174/69
[2018-05-30 12:05] LABS: ABSOLUTE EOSINOPHILS 0.1 thou/uL (0.0-0.7); ABSOLUTE LYMPHOCYTES 0.6 thou/uL (0.8-5.3); ABSOLUTE MONOCYTES 0.3 thou/uL (0.0-1.2); ABSOLUTE NEUTROPHILS 7.7 thou/uL (1.6-8.1); HYPOCHROMASIA 2+
[2018-05-30 12:06] LABS: ANISOCYTOSIS 1+; GIANT PLATELETS OCCASIONAL; MICROCYTES 1+; PLATELET ESTIMATE DECREASED
[2018-05-30 12:40] VITALS: BP 174/69
--- NOTE | 2018-05-30 15:05 | PATH ---
[facility] [address] [place] [address] PATHOLOGY RPT PROCEDURE Name: KINJAL YOST Room: [address] IN .R.#: [id number] Admission: 05/20/18 Date of : 33 Discharge: 05/30/18 Report #: [id number] Path Case #: [id number] [facility] Accession Number: [id number] . 01 Material submitted: . colon - ASCENDING COLON POLYPS. Modifiers: ascending . 01 Clinical history: . None provided . 02 Diagnosis: Ascending colon polyps: - Two tubular adenomas, negative for high grade dysplasia. (DAVID/db; 05/30/2018) LBQ/05/30/2018 . 02 Electronically signed: . Dony Pan MD, Pathologist NPI- [id number] . 01 Gross description: . Received in formalin labeled "Kinjal Yost, ascending colon polyps," are 2 segments of sweeney soft tissue measuring 1.5 x 0.4 x 0.3 cm in aggregate dimensions and ranging from 0.4 to 1.0 cm in maximum dimension. The specimen is submitted entirely in cassette A1. (TSD; 05/29/2018) TOB/TOB . 02 Pathologist provided ICD-10: D12.2 . 02 CPT . 427984 Specimen Comment: A courtesy copy of this report has been sent to Specimen Comment: [phone]. Specimen Comment: Report sent to ,DR DORSEY / DR HUITRON Performed at: [address], [place], [place] [id number] MD Chet Hurd MD Phone: [phone] Performed at: 02 [facility] [address], [place], [place] [id number] MD Dony Pan MD Phone: [phone]
--- NOTE | 2018-05-30 18:58 | CON ---
[facility] [address] [place] [address] CONSULTATION Name: ITZ TINAJERO Room: [address] IN M.R.#: [id number] Admission: 05/20/18 Attend Phys: Donato Smith, Discharge: 05/30/18 Date of : 33 Report #: [id number] THIS REPORT FOR: //name// CC: Gato Smith MD DATE OF SERVICE: 05/20/2018 GASTROENTEROLOGY CONSULTATION REFERRING PHYSICIAN: Donato Smith M.D. REASON FOR CONSULTATION: Recurrent anemia. IMPRESSION: 1. Severe recurrent anemia with negative GI workup in the past. 2. Severe anemia, requiring multiple transfusions over the last several years. 3. History of aortic valve replacements, for which the patient is on chronic anticoagulation for the same. 4. Chronic kidney disease, stage 4. RECOMMENDATIONS: 1. At the time of the initial consultation, I had not been able to review all the records from her [facility] evaluation, but have since done so. I will make reference to the same within the body of this report. 2. The patient is not willing and does not want to proceed with any further studies at this point in time, but if she decided to do so, the next step would be for her to undergo an upper endoscopy with placement of a small bowel capsule. 3. She has refused to have a bone marrow biopsy and has already been evaluated by Dr. Swartz regarding the same. I think this would be the most beneficial test that could be done. 4. Otherwise, at this time, we will just transfuse her as required if she decides to do so. HISTORY OF PRESENT ILLNESS: This is a very pleasant 83-year-old white female who was admitted to hospital with complaints of lightheadedness, dizziness and feeling poorly. She was found to have a hemoglobin in the 4 gram/dL range. She denies any complaints referable to her upper or lower GI tract. She denies dysphagia, odynophagia, postprandial pain or any problem with her bowels or bowel frequency. Denies any black stools or tarry stools. She does know that she has problems with hemorrhoids and these have been noted by endoscopic evaluation in the past. She has had history of chronic anemia [place] [address] CONSULTATION Name: ITZ TINAJERO Room: [address] IN [facility].#: [id number] Admission: 05/20/18 Attend Phys: Donato Smith, Discharge: 05/30/18 Date of : 33 Report #: [id number] multiple transfusions and then, in reviewing the records from [facility], she has received a total of 43 units of packed red cells since 2006, with the majority of them being given to her since 2010. She has also had 2 units of fresh frozen plasma too for platelets. She has undergone endoscopic studies of her upper and lower GI tract in the past, last of which were performed most recently. Her most recent upper endoscopy was performed in April of this year by Dr. Chavarria and revealed only hiatal hernia. There was no evidence for any other problems. Her last colonoscopy was performed in 2014 and she had 2 attempts at that time, but her bowel preparation was still suboptimal. However, no large lesions were noted. She did have a polyp and had hemorrhoids. She refused to have any other further endoscopic evaluations. She had been followed by Dr. Swartz for her anemia, who requested that she undergo a bone marrow biopsy, but the patient denied any interest in pursuing the same. She is admitted to the hospital for further evaluation and treatment. ALLERGIES: GABAPENTIN, ASPIRIN, HEPARIN, PENICILLIN, SULFA, TETRACYCLINE, AND ZINC. MEDICATIONS: Include iron, furosemide, glipizide, lisinopril, metformin, metoprolol, Dulera, omeprazole, Actos, potassium, Xarelto, trazodone and tramadol. PAST MEDICAL HISTORY: Remarkable for hypertension, diabetes, chronic anemia, chronic kidney disease, COPD, chronic acid reflux and atrial fibrillation. She has had previous aortic stenosis with previous valve replacement as well. PAST SURGICAL HISTORY: She had previous tonsillectomy and aortic valve replacement. SOCIAL HISTORY: The patient does not smoke or drink. FAMILY HISTORY: Negative. PHYSICAL EXAMINATION: GENERAL: Revealed her vital signs to be stable. CARDIOPULMONARY EXAMINATION: Regular rate and rhythm. LUNGS: Clear. ABDOMEN: Soft and not tender. No rebound or guarding noted. LABORATORY DATA: Her laboratory tests from admission revealed a white count of 5.6, hemoglobin 4.2, platelet count of 126,000, MCV is 99.4 and RDW 18.9. Differential is normal. Her sodium on admission 137, potassium 6.2, chloride 102, bicarbonate is 10, her BUN is 78 and creatinine is 2.6 with a GFR of 17. Total bilirubin 0.3, alkaline phosphatase 71, AST 57 and ALT 34. Albumin is 2.5. Troponin is 0.06 and a BNP is 8454. [place] [address] CONSULTATION Name: ITZ TINAJERO [address] [id number] Admission: 05/20/18 Attend Phys: Donato Smith, Discharge: 05/30/18 Date of : 33 Report #: [id number] DISCUSSION: At the present time, the patient has had problems with recurrent anemia. She does not want to have any further workup at this point in time. If, however, she decides to do so, I have recommended she undergo an upper endoscopy with placement of small bowel capsule study, but more importantly, I think she should probably undergo a bone marrow biopsy. She has already refused this in the past and likely will continue to refuse the same. Otherwise, she will just need to be transfused as needed, with monitoring of her kidney and heart function. We will hold off on any further studies. A total of 45 minutes were used to review all the patient's records and to evaluate this patient. <ELECTRONICALLY SIGNED> By: Laureano Altman DO 05/30/18 1858 0802 0058Laureano Altman DO /nt
--- NOTE | 2018-05-30 18:58 | CON ---
[address] [address] CONSULTATION Name: ITZ TINAJERO Room: [address] IN M.R.#: [id number] Admission: 05/20/18 Attend Phys: Donato Smith, Discharge: 05/30/18 Date of : 33 Report #: [id number] THIS REPORT FOR: //name// CC: Gato Smith DATE OF SERVICE: 05/22/2018 ADDENDUM TO CHART #[id number] The actual date of consultation was 05/22/2018 and not 05/20/2018. Please make note of the same. <ELECTRONICALLY SIGNED> By: Laureano Altman DO 05/30/18 1858 0805 0055Laureano Altman DO /nt
== END 2018-05-30 14:00 | disposition home or self-care (01) | DRG 871 ==
LOC: M.ERS 06:41 → M.TBA-ER 08:59 → M.ICU 08:59 → M.ERS 08:59 → M.3W 08:59 → M.TBA-ER 11:33 → M.ICU 11:33 → M.3W 05-22 15:25
PROVIDERS: Emergency Medicine; Internal Medicine; Internal Medicine Gastroenterology; Internal Medicine Nephrology; Internal Medicine Pulmonary Disease; Personal Emergency Response Attendant; Surgery; ADMIT Family Medicine
PROC: 30233N1 Transfusion of Nonautologous Red Blood Cells into Peripheral Vein, Percutaneous Approach (ICD-10-PCS; principal; 2018-05-20)
PROC: 02HV33Z Insertion of Infusion Device into Superior Vena Cava, Percutaneous Approach (ICD-10-PCS; principal; 2018-05-20)
PROC: 0DBK8ZZ Excision of Ascending Colon, Via Natural or Artificial Opening Endoscopic (ICD-10-PCS; 2018-05-29)
PROC: 0DJ08ZZ Inspection of Upper Intestinal Tract, Via Natural or Artificial Opening Endoscopic (ICD-10-PCS; 2018-05-29)
DX: A41.9 Sepsis, unspecified organism (principal); R65.21 Severe sepsis with septic shock; J18.9 Pneumonia, unspecified organism; G93.41 Metabolic encephalopathy; K72.00 Acute and subacute hepatic failure without coma; R57.0 Cardiogenic shock; N17.9 Acute kidney failure, unspecified; N18.4 Chronic kidney disease, stage 4 (severe); R18.8 Other ascites; K92.2 Gastrointestinal hemorrhage, unspecified; Z66 Do not resuscitate; E87.5 Hyperkalemia; D50.0 Iron deficiency anemia secondary to blood loss (chronic); K64.9 Unspecified hemorrhoids; D69.6 Thrombocytopenia, unspecified; I12.9 Hypertensive chronic kidney disease with stage 1 through stage 4 chronic kidney disease, or unspecified chronic kidney disease; K44.9 Diaphragmatic hernia without obstruction or gangrene; D12.2 Benign neoplasm of ascending colon; J45.909 Unspecified asthma, uncomplicated; I48.91 Unspecified atrial fibrillation; E83.42 Hypomagnesemia; E11.22 Type 2 diabetes mellitus with diabetic chronic kidney disease; Z95.2 Presence of prosthetic heart valve; Z79.01 Long term (current) use of anticoagulants; Z79.84 Long term (current) use of oral hypoglycemic drugs; Z79.899 Other long term (current) drug therapy; Z88.6 Allergy status to analgesic agent; Z88.1 Allergy status to other antibiotic agents; Z88.0 Allergy status to penicillin; Z88.2 Allergy status to sulfonamides; Z88.8 Allergy status to other drugs, medicaments and biological substances; Z82.49 Family history of ischemic heart disease and other diseases of the circulatory system

== ENCOUNTER → 2018-06-05 | Outpatient (CLI) | payer MEDICARE, BC ==
[~2018-06-05] MED LIST: DULERA 200 MCG/13 GM INH; GLUCOTROL5 MG PO; HYTRIN 2MG CAPSU2 M1 PO; IRON325 PO; LASIX 40 MG TAB40 M2 PO; LISINOPRIL10 MG PO; LOPRESSOR25 PO; METFORMIN HCL500 MG PO; OMEPRAZOLE40 MG PO; PIOGLITAZONE15 MG; POTASSIUM20 PO; ULTRAM 50MG TAB50 MG PO; XARELTO15 MG PO
== END ==
LOC: M.ULTRA 11:00
DX: R60.0 Localized edema (principal); Z87.09 Personal history of other diseases of the respiratory system

== ENCOUNTER → 2018-06-09 | Outpatient (CLI) | payer MEDICARE, BC ==
[2018-06-08 11:54] LABS: HEMATOCRIT 22.2 % (37.0-47.0)
[2018-06-08 12:00] LABS: HEMOGLOBIN 6.9 gm/dL (12.0-15.0)
[2018-06-09 07:30] VITALS: BP 135/63
[2018-06-09 08:32] VITALS: BP 129/55; BP 133/87; BP 137/72
[2018-06-09 10:33] VITALS: BP 133/87; BP 136/65; BP 136/68; BP 148/73
[2018-06-09 12:55] VITALS: BP 136/77
--- NOTE | 2018-06-09 13:02 | NUR ---
PATIENT TOLERATED BLOOD TRANSFUSIONIS WITH NO ADVERSE REACTIONS REPORTED OR OBSERVED. DISCHARGE INSTRUCTIONS AND POTENTIAL REACTIONS REVIEWED WITH PATIENT AND SON. PERIPHERAL IV REMOVED AND PRESSURE HELD WITH DRESSING APPLIED. DISCHAGED WITH SON IN STABLE CONDITION.
== END ==
LOC: M.LAB 06-07 12:12 → M.INFUS 06-08 11:00 → M.LAB 06-08 11:00
PROVIDERS: Family Medicine
DX: D50.9 Iron deficiency anemia, unspecified (principal)